=== PATIENT | male | born 1940 | race Caucasian/White ===

== ENCOUNTER 2017-06-13 07:07 | Emergency (ER) | payer OTHER ==
[~2017-06-13 07:07] MED LIST: COZAAR50 MG PO; ZOCOR20 MG PO
[2017-06-13 08:20] VITALS: BP 135/82
== END 2017-06-13 08:20 | disposition home or self-care (01) ==
LOC: ED 07:07
DX: S61.011A Laceration without foreign body of right thumb without damage to nail, initial encounter (principal); I10 Essential (primary) hypertension; W25.XXXA Contact with sharp glass, initial encounter; Y93.89 Activity, other specified; Y99.8 Other external cause status; Y92.89 Other specified places as the place of occurrence of the external cause
CPT/HCPCS: 90715; A4570